=== PATIENT | male | born 1950 | race Caucasian/White ===

== ENCOUNTER 2017-03-01 10:46 | Observation (INO) | payer MEDICARE, OTHER ==
[~2017-03-01] VITALS: Ht 175.3 cm; Wt 89.7 kg
[2017-03-01] VITALS (7 sets, daily range): BP systolic 118–136; BP diastolic 73–90; PULSE 59–76; RESP 16–20; O2SAT 96–98
--- NOTE | 2017-03-01 10:57 | ED.REPORT ---
HPI-General Illness Date of Service March 01, 2017 ED Provider: Emmanuel Cuenca MD Patient is a 66 year old male with history of cardiomyopathy, LBBB, AAA and previous pneumothorax presents to [facility] ED accompanied by his complaining of sudden shortness of breath earlier this morning after cough. Patient has been at the restaurant with his and friends having breakfast. He went to the bathroom, had a cough, after which he felt short of breath. He reports a previous history of pneumothorax in 2016 requiring chest tube in his right lung. he denies chest pain, nausea, vomiting, diaphoresis, diarrhea. Nursing Notes Stated Complaint: SOB Chief Complaint: Respiratory Distress Nursing Notes Reviewed: Yes Allergies: Coded Allergies: No Known Allergies (Unverified , 03/01/17) General Time Seen by MD: 10:55 Chief Complaint Other (shortness of breath) Hx Obtained From: Patient, Spouse Sudden in Onset?: Yes Onset Occurred: Just prior to arrival Context of Onset: Other (Cough) Past Medical History Past Medical History Cardiomyopathy LBBB AAA Pneumothorax Past Surgical History Cardiac catheterization Lasix surgery Knee surgery Smoking History Unknown if Ever Smoker Social History Alcohol Use: Denies alcohol use Drug Use: Denies drug use Other Social History: Ambulatory Status Independent Review of Systems Full Review of Systems Respiratory: Reports: Non-productive cough, Pleuritic pain, Shortness of breath Cardiovascular: Denies: Chest pain GI: Denies: Diarrhea, Nausea, Vomiting Skin: Denies Diaphoresis Complete sys rev & neg: except as marked. Physical Exam Vital Signs Vital Signs Date Time Temp Pulse Resp B/P Pulse Ox O2 Delivery O2 Flow Rate FiO2 03/01/17 12:26 36.8 74 18 135/86 98 Room Air 03/01/17 12:23 36.8 76 18 135/86 98 Room Air 03/01/17 10:50 36.2 72 18 131/88 96 Room Air Initial VS: Reviewed Extremities: Vascular intact, Neuro intact Skin: Warm, Dry, No cyanosis Psychiatric: Mood/affect normal, Behavior normal, Normal thought content General/Constitutional: Awake, Alert, Well appearing, Well developed, Well hydrated, Well nourished, Not toxic appearing Head / Eyes: Atraumatic, Normocephalic, PERRL, EOMI Resp Distress / Stridor: Positive: Resp distress mild Diminished Breath Sounds: Positive: Decreased R (Marked) Wheezing / Retractions: Positive: Wheezing expiratory (Scattered) Speaking in full sentences Cardiovascular: Heart rate NL, Regular rhythm, Heart sounds NL, No gallop, No murmurs, No rubs, Cap refill not delayed, Peripheral circulation NL Abdomen: Atraumatic, Soft, Non-tender, No distention Neurologic: Oriented X3, Speech NL, CN II - XII intact Interpretation & Diagnostics Lab Results Interpretation Result Diagram: 03/01/17 1100 03/01/17 1100 Test 03/01/17 11:00 White Blood Count 5.4th/mm3 (3.8-10.1) Red Blood Count 5.05mil/mm3 (4.40-5.80) Hemoglobin 16.3g/dL (13.8-17.2) Hematocrit 47.2% (41.0-50.0) Mean Corpuscular Volume 93.5fL (81-100) Mean Corpuscular Hemoglobin 32.3pg (27.0-35.0) Mean Corpuscular Hemoglobin Concent 34.5% (32.0-37.0) Red Cell Distribution Width 12.2% (12.3-15.4) Platelet Count 156bil/L (150-400) Neutrophils (%) (Auto) 50.7% (40-74) Lymphocytes (%) (Auto) 37.7% (14-46) Monocytes (%) (Auto) 8.2% (4-12) Eosinophils (%) (Auto) 2.6% (0-5) Basophils (%) (Auto) 0.6% (0-3) Prothrombin Time 10.9sec (8.1-12.5) Prothromb Time International Ratio 1.02ratio D-Dimer < 0.5mg/L FEU (<0.50) Sodium Level 137mEq/L (134-144) Potassium Level 4.3mEq/L (3.5-5.2) Chloride Level 97mEq/L (97-108) Carbon Dioxide Level 25mmol/L (18-29) Blood Urea Nitrogen 19mg/dL (8-27) Creatinine 0.89mg/dL (0.76-1.27) Estimat Glomerular Filtration Rate 91mL/min (>59) Glucose Level 154mg/dL (60-99) Calcium Level 9.7mg/dL (8.5-10.1) Total Bilirubin 0.6mg/dL (0.0-1.2) Aspartate Amino Transf (AST/SGOT) 22U/L (0-50) Alanine Aminotransferase (ALT/SGPT) 22U/L (0-44) Alkaline Phosphatase 67U/L (25-160) Troponin T 0.010ug/L (0.0-0.011) Pro-B-Type Natriuretic Peptide 124.6pg/mL (0-376) Total Protein 7.4g/dL (6.4-8.4) Albumin 4.3g/dL (3.4-5.0) Hold Alex Top Tube Received (Received) ECG Interpretation ECG Interpretation: Sinus rhythm at 77 bpm with LBBB Normal ST segments No acute Twave abnormalities No prior for comparison however pt reports hx of LBBB. Time: 11:16 Interpreted by: ED physician Normal ECG Interpretation: Normal rate (77), Normal sinus rhythm X-Ray Chest Interpretation Chest Xray Interpretation: IMPRESSION: Moderate right pneumothorax. Findings relayed to Dr. Cuenca on 03.01.17 at 1128 hrs. Dictated by: Chantel Subramanian M.D. on 03/01/2017 at 11:27 Approved by: Chantel Subramanian M.D. on 03/01/2017 at 11:28 Chest Xray Interpretation: IMPRESSION: Resolution of right pneumothorax following chest tube placement. Dictated by: Chantel Subramanian M.D. on 03/01/2017 at 12:12 Approved by: Chantel Subramanian M.D. on 03/01/2017 at 12:13 Procedures Proced Mod Sedation/Analgesia Time: 11:29 Procedure Performed by: ED physician Sedation Time: 10 - 15 min, 16 - 30 min, 31 - 45 min (40min) Consent / Setup: Informed consent provided, Consent from patient, Time-out performed, Hand hygiene observed, Stand sterile technique, Position supine Indication: Other Preparation: talent specialist applied, Pulse oximeter applied, Constant attendance, IV access established, Supplemental oxygen, Procedure explained, Suction available, End tidal CO2 mon applied VS Prior to Procedure: All vital signs normal Mallampati: Class & Anatomy: 1 tonsils/uvula/s palate Airway Exam: Normal facial anatomy CVS/Resp Exam: Normal breath sounds, Normal heart sounds Neuro Exam: Alert, No acute distress, Responsive Sedation: Sedation: Ketamine ASA Classification: 1 normal healthy patient Response During Procedure: Handled secretions adeq, Maintained airway well, Oxygenation stable, Sedation appropriate, Vital signs stable Complications During/After: None Reversal: None required Mental Status After Procedure: Alert, Oriented X3, Response to verbal stim, Response to painful stim, Normal per age, At patient's baseline Post-Procedure: Alert prior to discharge, Ambulatory with assist, Pt rtn pre- proc baseline, Vital signs normal Attestation: I performed procedure, I performed sedation Tube Thoracostomy Time: 11:33 Tube Thoracostomy by: ED physician Indication: Pneumothorax Consent / Timeout / Setup: Informed consent provided, Consent from patient, Time-out performed, Oxygen administered, Pulse oximeter applied, talent specialist applied, Hand hygiene observed, Stand sterile technique, Position supine Tube Insertion Location Right: 4th intercostal space Tube Size: 20 Local Anesthesia: Lidocaine w epi 2% Procedural Sedation/Analgesia: Sedation: Ketamine (100) Tube Insertion: Incision 3-5 cm, X-ray tube confirmation, Tube in good position, Secured with nylon suture Post-Procedure / Complications: Occlusive dressing, No complications, Pneumothorax resolved, Condition improved, Tolerated procedure well, Patient stable Lab Results Interpretation Result Diagram: 03/01/17 1100 03/01/17 1100 Test 03/01/17 11:00 White Blood Count 5.4th/mm3 (3.8-10.1) Red Blood Count 5.05mil/mm3 (4.40-5.80) Hemoglobin 16.3g/dL (13.8-17.2) Hematocrit 47.2% (41.0-50.0) Mean Corpuscular Volume 93.5fL (81-100) Mean Corpuscular Hemoglobin 32.3pg (27.0-35.0) Mean Corpuscular Hemoglobin Concent 34.5% (32.0-37.0) Red Cell Distribution Width 12.2% (12.3-15.4) Platelet Count 156bil/L (150-400) Neutrophils (%) (Auto) 50.7% (40-74) Lymphocytes (%) (Auto) 37.7% (14-46) Monocytes (%) (Auto) 8.2% (4-12) Eosinophils (%) (Auto) 2.6% (0-5) Basophils (%) (Auto) 0.6% (0-3) Prothrombin Time 10.9sec (8.1-12.5) Prothromb Time International Ratio 1.02ratio D-Dimer < 0.5mg/L FEU (<0.50) Sodium Level 137mEq/L (134-144) Potassium Level 4.3mEq/L (3.5-5.2) Chloride Level 97mEq/L (97-108) Carbon Dioxide Level 25mmol/L (18-29) Blood Urea Nitrogen 19mg/dL (8-27) Creatinine 0.89mg/dL (0.76-1.27) Estimat Glomerular Filtration Rate 91mL/min (>59) Glucose Level 154mg/dL (60-99) Calcium Level 9.7mg/dL (8.5-10.1) Total Bilirubin 0.6mg/dL (0.0-1.2) Aspartate Amino Transf (AST/SGOT) 22U/L (0-50) Alanine Aminotransferase (ALT/SGPT) 22U/L (0-44) Alkaline Phosphatase 67U/L (25-160) Troponin T 0.010ug/L (0.0-0.011) Pro-B-Type Natriuretic Peptide 124.6pg/mL (0-376) Total Protein 7.4g/dL (6.4-8.4) Albumin 4.3g/dL (3.4-5.0) Hold Alex Top Tube Received (Received) Re-Eval/Medical Decision Med Decision/Clinical Course In summary, the patient is a relatively healthy 66-year-old male who presents with shortness of breath and right-sided pleuritic chest pain that was acute in onset. The patient has a remote history of spontaneous pneumothorax on the right side previously requiring treatment with chest tube. Upon arrival the patient is in moderate respiratory distress with markedly diminished breath sounds on the right side. X-ray demonstrates a large to moderate sized right- sided pneumothorax. EKG was obtained and interpreted by myself as documented above. Consent was obtained and I proceeded to place a 20 [place] right-sided chest tube under procedural sedation with ketamine. The patient maintained normal vital signs throughout and had marked improvement in his respiratory effort and status after placement of chest tube. Chest x-ray obtained thereafter demonstrated complete resolution of pneumothorax. Laboratory studies including CBC, CMP and troponin were all unremarkable. Overall presentation is consistent with spontaneous pneumothorax. Cause thereof remains unclear that he is noted to have wheezing and I suspect he may have some degree of bronchitis/reactive airway disease. There is no evidence of pneumonia. Overall presentation is inconsistent with pulmonary embolism. Patient discussed with surgery Dr. Jaeger who agreed to admit the patient for further management. He remained stable and in no apparent distress with oxygen saturation in the high 90s throughout his entire ED course. Consultation : Referral / Consult Name: Tashi Jaeger MD Consulted With: Surgeon Call Returned at: 12:09 Fence Gate Assembler: Will see patient, Agrees with plan, Accepts admit Note: Discussed pt condition and procedure. Accepts admit. Counseled Regarding: Diagnosis, Lab results, Need for admission Discharge & Departure Primary Impression: Spontaneous pneumothorax Additional Impressions: Shortness of breath Respiratory distress Disposition: ADMITTED TO HOSPITAL Discharge Condition All VS Reviewed: Yes Condition: Improved Crit Care Except Billable Proc Time Spent: 75-104 minutes Services Performed: Patient management by me, Time spent at bedside, Reviewing test results, Reviewing imaging, Discussing patient care, Documentation in record, Time with fam/surrogate Scribe Attestation Portions of this note were transcribed by Hallie Gross. I, Dr. Cuenca personally performed the history, physical exam and medical decision-making; I reviewed and confirmed the accuracy of the information in the transcribed note. Signed by: Diaz Leigh, 03/01/17 and 1250. Emmanuel Cuenca MD March 01, 2017 10:57 Sabi Cunha DO March 01, 2017 11:22 HALLIE GROSS March 01, 2017 11:35
[2017-03-01 11:09] LABS: BASOPHILS % (AUTO) 0.6 % (0-3); EOSINOPHILS % (AUTO) 2.6 % (0-5); MONOCYTES % (AUTO) 8.2 % (4-12); Mean Corpuscular Hemoglobin 32.3 pg (27.0-35.0); Mean Corpuscular Volume 93.5 fL (81-100); NEUTROPHILS % (AUTO) 50.7 % (40-74); Platelet Count 156 bil/L (150-400)
[2017-03-01] MEDS ORDERED: Ketamine 100 mg/mL 5 mL Inj IV ONE (11:25)
[2017-03-01 11:30] LABS: D-Dimer < 0.5 mg/L FEU (<0.50); INR 1.02 ratio
--- NOTE | 2017-03-01 11:30 | DRSVH ---
PROCEDURE: X-RAY CHEST, TWO VIEWS ([id number]) INDICATIONS: PNX? TECHNIQUE: 2 views of the chest were acquired. COMPARISON: None. FINDINGS: Surgical changes and devices: None. Lungs and pleura: No pleural effusions. Moderate right pneumothorax. Lungs are clear. Mediastinum: Mediastinal contours are normal. Heart size is normal. Bones and chest wall: No suspicious bony abnormalities. Soft tissues appear unremarkable. IMPRESSION: Moderate right pneumothorax. Findings relayed to Dr. Cuenca on 03.01.17 at 1128 hrs. Dictated by: Chantel Subramanian M.D. on 03/01/2017 at 11:27 Approved by: Chantel Subramanian M.D. on 03/01/2017 at 11:28
[2017-03-01 11:33] LABS: TROPONIN T 0.01 ug/L (0.0-0.011)
--- NOTE | 2017-03-01 12:14 | DRSVH ---
PROCEDURE: X-RAY CHEST ONE VIEW ([id number]) INDICATIONS: chest tube placement TECHNIQUE: One view of the chest was acquired. COMPARISON: None. FINDINGS: Surgical changes and devices: Right-sided chest tube. Lungs and pleura: No pleural effusions or pneumothorax. Lungs are clear. Mediastinum: Mediastinal contours appear normal. Heart size is normal. Bones and chest wall: No suspicious bony lesions. Overlying soft tissues appear unremarkable. IMPRESSION: Resolution of right pneumothorax following chest tube placement. Dictated by: Chantel Subramanian M.D. on 03/01/2017 at 12:12 Approved by: Chantel Subramanian M.D. on 03/01/2017 at 12:13
[2017-03-01] MEDS ORDERED: Alum-Mag Hydrox-Simeth 30 mL Suspension PO PRN (12:15)
[2017-03-01] MEDS ORDERED: Ondansetron 2 mg/mL 2 mL Inj IVPUSH PRN ×2 (12:15→14:05)
[2017-03-01] MEDS ORDERED: RAMI5CAP PO (13:10)
[2017-03-01] MEDS ORDERED: ATOR40TA69 PO (13:10)
[2017-03-01] MEDS ORDERED: MULT1CAP33 PO (13:10)
[2017-03-01] MEDS ORDERED: FENO160T14 PO (13:10)
[2017-03-01] MEDS ORDERED: CARV25TA2 PO (13:10)
[2017-03-01] MEDS: HYDROcodone-APAP 5-325 mg Tablet PO PRN ×3 (14:38→20:59)
--- NOTE | 2017-03-01 16:38 | DRSVH ---
PROCEDURE: X-RAY CHEST ONE VIEW, PORTABLE ([id number]) INDICATIONS: right chest tube TECHNIQUE: One view of the chest was acquired. COMPARISON: None. FINDINGS: Surgical changes and devices: Right-sided chest tube. Lungs and pleura: No pleural effusions or pneumothorax. Lungs are clear. Mediastinum: Mediastinal contours appear normal. Heart size is normal. Bones and chest wall: No suspicious bony lesions. Overlying soft tissues appear unremarkable. IMPRESSION: No acute process. Dictated by: Chantel Subramanian M.D. on 03/01/2017 at 16:36 Approved by: Chantel Subramanian M.D. on 03/01/2017 at 16:36
--- NOTE | 2017-03-01 17:46 | HP ---
[address] [address] HISTORY AND PHYSICAL PATIENT: SHAHIDA LAZAR : 1950 MR#: [id number] ADMIT: 03/01/2017 JOB ID: [id number] DATE OF ADMISSION: 03/01/2017 CHIEF COMPLAINT: Spontaneous right pneumothorax. HISTORY OF PRESENT ILLNESS: This is a 66-year-old man who is on vacation with his and friends, driving across the country from [place]. This morning they stopped to have breakfast and he coughed and noticed acute right-sided chest pain and shortness of breath. He had a spontaneous pneumothorax in December 2015 and the symptoms were identical, prompting him to come to the emergency department, where indeed a chest x-ray demonstrated moderate-sized right pneumothorax. Emergency department physician placed a chest tube with complete resolution of pneumothorax. He was then admitted to my service. He denies any significant pulmonary history though he does have a significant smoking history. He smoked 1-1/2 to 2 packs of cigarettes per day for 25 years and quit in 2007. He sees a descriptive catalog librarian with CT screening but is on no medications. Since the chest tube was placed, I have had it put on water-seal and a followup chest x-ray shows that the pneumothorax remains resolved. PAST MEDICAL HISTORY: 1. Left bundle branch block. 2. AAA. 3. Coronary artery disease, status post angioplasty. 4. Cardiomyopathy. PAST SURGICAL HISTORY: None. MEDICATIONS: 1. Aspirin. 2. Ramipril. 3. Atorvastatin. 4. Fenofibrate. 5. Carvedilol. 6. Multivitamin. ALLERGIES: He has no known drug allergies. FAMILY HISTORY: Family history is reviewed and unremarkable. SOCIAL HISTORY: He lives in [place], is retired from the [employer] industry. Does not smoke anymore and occasionally drinks alcohol. REVIEW OF SYSTEMS: Full review of systems is obtained and significant only at this time for some right-sided chest pain associated with the chest tube. PHYSICAL EXAMINATION: He has been afebrile since admission. His temperature now is 36.7 degrees, heart rate 69 beats per minute, blood pressure is 136/90, satting 98% on room air with a respiratory rate of 18 breaths per minute. In general, appears comfortable, in no acute distress. Cardiovascular: He has a regular rate and rhythm. No appreciated murmurs, rubs, or gallops. Pulmonary: His lungs are clear to auscultation bilaterally. Vascular: He has no carotid bruit. Neck has no thyromegaly. Lymph: He has no cervical lymphadenopathy. GI: Abdomen is soft, nontender, nondistended. Extremities: Warm without significant edema. Skin is warm without rash. Neuro is grossly intact. Psych is pleasant and appropriate. Other: His chest tube had no air leak. There is scant output. I have clamped it. IMAGING: Chest x-ray is reviewed. He had a moderate-size right pneumothorax with complete resolution with chest tube placement. The final image demonstrates no recurrent pneumothorax after placing a chest tube on water-seal. ASSESSMENT AND PLAN: This is a 66-year-old man with a history of a right spontaneous pneumothorax with a recurrence today with resolution of chest tube placement. I have clamped the chest tube. I am going to get a followup imaging in a couple of hours. If that looks okay, I will pull the tube and [facility] Again, this is his 2nd episode. I recommended CT scan. However this can be obtained as an outpatient in [place]. He may be a candidate for blebectomy depending on the findings. I discussed this at length with the patient and his .
--- NOTE | 2017-03-01 17:50 | NUR ---
MARIAMA explained and signed. Copy of MARIAMA and Medicare self administered medication information given to pt.
--- NOTE | 2017-03-01 19:16 | DRSVH ---
PROCEDURE: X-RAY CHEST ONE VIEW, PORTABLE ([id number]) INDICATIONS: chest tube clamped TECHNIQUE: One view of the chest was acquired. COMPARISON: [facility], CR, XR CHEST 1VW (PORTABLE), 03/01/2017, 16:14. FINDINGS: Surgical changes and devices: Right-sided chest tube. Lungs and pleura: No pleural effusions or pneumothorax. Lungs are clear. Mediastinum: Mediastinal contours appear normal. Heart size is normal. Bones and chest wall: No suspicious bony lesions. Overlying soft tissues appear unremarkable. IMPRESSION: No pneumothorax. Dictated by: Chantel Subramanian M.D. on 03/01/2017 at 19:14 Approved by: Chantel Subramanian M.D. on 03/01/2017 at 19:15
--- NOTE | 2017-03-01 19:38 | NUR ---
Admit to PCC. Pt admitted to PCC from ED at 13:30. Pt oriented to floor and vitals taken. Pt up to floor with Right sided chest tube. Order to water seal chest tube given shortly after arrival to floor. Minimal drainage in chest tube cassette. Pt complaining of pain with movement or position change. tylenol given, then vicodin ordered and given, pt reports pain at tolerable level by end of shift.
--- NOTE | 2017-03-01 20:20 | PCM.DISURG ---
Surgical Discharge Instruction Date of Service March 01, 2017 Dates of Hospitalization Date of Hospital Admission March 01, 2017 at 13:00 Providers Admitting Physician: Tashi Jaeger MD Primary Care Physician: Nopmike Attending Physician: Tashi Jaeger MD Discharge Diagnosis Discharge Diagnosis Right pneumothorax Diet Discharge Diet: No restrictions Activity Discharge Activity-General: Be up and about, Balance rest and activity, No driving while taking narcotic Dressing and Incisional Care Dressing Care: Keep dressing clean, dry & intact (May remove after 48hrs) Follow Up Plan Follow Up Plan Follow up with your product evangelist in [facility]. You will also need a single suture removed in the next 5-14 days Call your provider for: Shortness of breath Tashi Jaeger MD March 01, 2017 20:20
[2017-03-01] MEDS ORDERED: HYDR-4003 PO (20:21)
--- NOTE | 2017-03-01 20:47 | PROG NOTE ---
[address] [address] PROGRESS NOTE PATIENT: SHAHIDA LAZAR : 1950 MR#: [id number] ADMIT: 03/01/2017 JOB ID: [id number] DATE: 03/01/2017 INPATIENT PROGRESS NOTE: Patient is seen in followup for his right pneumothorax. I placed the chest tube on water seal and obtained a followup chest x-ray which showed no recurrence of pneumothorax. I then had the tube clamped for a number of hours and, again, chest x-ray showed stable findings. Therefore, the tube was removed. The patient would like to leave the hospital tonight which I am agreeable to. He will be discharged. He is from [place] and is going to be driving home over the next couple of days. I encouraged him to follow up with his graphic pre press trades worker as soon as he gets back to [facility]. We also discussed the need to seek medical attention should his symptoms recur.
--- NOTE | 2017-03-01 21:09 | NUR ---
Chest Tube/Bleeding Chest tube removed at bedside by Dr. Jaeger at 2029. Dressing applied. Patient's vital signs stable. Breath sounds equal and audible bilaterally. On recheck at 2049, patient noted to have bled through the gauze dressing, with red blood also visible on his gown. Dressing reinforced and pressure applied. Page to Dr. Jaeger. Discussed via telephone with Dr. Jaeger; per MD, as long as patient feels comfortable and the bleeding slows down, he is ok to discharge tonight as planned.
--- NOTE | 2017-03-01 21:56 | NUR ---
Discharge No additional bleeding at chest tube site x45 minutes. Vital signs stable, lungs clear to auscultation with equal air movement bilaterally. Patient states he feels comfortable discharging tonight. Discharge paperwork reviewed with patient. Patient given opportunity to ask questions. Patient denies questions or concerns. IV d/c'd intact. Tele d/c'd. Patient off unit with family; transported in wheelchair.
--- NOTE | 2017-03-04 10:59 | PCM.DC.SUR ---
Discharge Summary Date of Service: Date of Hospital Admission: March 01, 2017 at 13:00 Date of Discharge: 03/01/2017 Diagnosis at Time of Discharge Primary diagnosis: Spontaneous pneumothorax Other chronic conditions: 1. Left bundle branch block. 2. AAA. 3. Coronary artery disease, status post angioplasty. 4. Cardiomyopathy. 5. Former cigarette smoker Problems: Brief History and Physical: This is a 66-year-old man who was on vacation with his and friends, driving across the country from [place]. On the morning of admission they stopped to have breakfast and he coughed and noticed acute right-sided chest pain and shortness of breath. He had a spontaneous pneumothorax in December 2015 and the symptoms were identical, prompting him to come to the emergency department, where indeed a chest x-ray demonstrated moderate-sized right pneumothorax. Emergency department physician placed a chest tube with complete resolution of pneumothorax. He was then admitted. He denied any significant pulmonary history though he does have a significant smoking history. He smoked 1-1/2 to 2 packs of cigarettes per day for 25 years and quit in 2007. He sees a network designer with CT screening but is on no medications. Consultants: None Hospital Course: The patient was admitted after chest tube had been placed on waterseal in the emergency room. Repeat chest x-ray did not demonstrate pneumothorax. The chest tube was then clamped for several hours and another repeat chest x-ray did not demonstrate pneumothorax. The patient was then discharged from the hospital at his request. Pathology: None Disposition: The patient was discharged from the hospital to continue his road trip on the way back to [place] approximately 10 hours after admission. Follow-up Plan: He will follow-up with his network designer in [place] when he returns home. Atorvastatin Calcium (Atorvastatin Calcium) 40 Mg Tablet 40 MG PO DAILY ( Reported) Carvedilol (Carvedilol) 25 Mg Tablet 25 MG PO BID (Reported) Fenofibrate (Fenofibrate) 160 Mg Tablet 145 MG PO DAILY (Reported) Hydrocodone-Acetaminophen 5-325 mg (Hydrocodone-Acetaminophen 5-325 mg) 1 Each Tablet 1-2 TABLET PO Q4H PRN PRN For Moderate Pain Multivitamin (Multivitamins) 1 Each Capsule 1 EACH PO DAILY (Reported) Ramipril (Ramipril) 5 Mg Capsule 5 MG PO DAILY (Reported) Thuan Pizarro PA-C March 04, 2017 10:59
== END 2017-03-01 21:55 | disposition home or self-care (01) ==
LOC: SED 10:46 → PCC 13:00 → INTOOBSV 13:00
PROVIDERS: ADMIT General Practice; ATTEND General Practice
DX: J93.11 Primary spontaneous pneumothorax (principal); R07.9 Chest pain, unspecified; R06.02 Shortness of breath; I44.7 Left bundle-branch block, unspecified; I71.4 Abdominal aortic aneurysm, without rupture; I25.10 Atherosclerotic heart disease of native coronary artery without angina pectoris; I42.9 Cardiomyopathy, unspecified; Z95.5 Presence of coronary angioplasty implant and graft; Z87.891 Personal history of nicotine dependence; Z79.82 Long term (current) use of aspirin
CPT/HCPCS: 32551; 36415; 71010; 71020; 80053; 83880; 84484; 85025; 85378; 85610; 93005; 94799; 96360; 99152; 99153; 99291; 99292; G0378